=== PATIENT | female | born 1980 | race Caucasian/White ===

== ENCOUNTER 2019-10-18 11:28 | Emergency (ER) | payer MEDICAID ==
[~2019-10-18] VITALS: Ht 167.6 cm; Wt 112.5 kg
[2019-10-18 11:34] VITALS: Ht 167.6 cm; Wt 112.5 kg
[2019-10-18 13:00] VITALS: BP 142/84
== END 2019-10-18 13:00 | disposition home or self-care (01) ==
LOC: ED 11:28
DX: M54.41 Lumbago with sciatica, right side (principal)
CPT/HCPCS: J1885